=== PATIENT | female | born 1975 | race Caucasian/White ===

== ENCOUNTER → 2020-10-12 | Outpatient (CLI) | payer MEDICARE, OTHER ==
[~2020-10-12] MED LIST: ANTIVERT 25MG T25 MG PO; ASPIRIN CHEWABL81 MG PO; BREO ELLIPTA 11 EACH INH; BUSPAR 10MG10 MG PO; CARDIZEM CD120 MG PO; CYMBALTA 30 MG30 MG PO; DEXILANT60 MG PO; EPIPEN 2-P0.3 MG/0.3 INJ; FEOSOL325 MG PO; FIORICET TAB1 EA PO; FLONASE 0.05% N16 GM; GLUCOPHAGE500 MG PO; IPRATROPIU0.2 MG/1 M INH; K-DUR TAB 10 M10 MEQ PO; LEVOCETIRIZINE D5 MG PO; LIPITOR20 MG PO; LYRICA150 MG PO; MICROZIDE12.5 MG PO; PATADAY2.5 ML OU; PRINIVIL20 MG PO; ROBAXIN-750750 MG PO; SAVAYSA60 MG PO; SINGULAIR10 MG PO; SYNTHROID50 MCG PO; TOPAMAX25 MG PO; TYLENOL W/CODEIN1 E1 PO; VENTOLIN HFA 66.7 GM INH; VITAMIN D250000 UNIT PO; VITAMIN D31000 UNIT PO; Voltaren Gel 1 % TOP
== END ==
LOC: US 09:42
DX: E04.1 Nontoxic single thyroid nodule (principal); Z90.09 Acquired absence of other part of head and neck
CPT/HCPCS: 76536

== ENCOUNTER 2021-09-08 14:25 | Emergency (ER) | payer MEDICARE, OTHER ==
[2021-09-08 19:01] LABS: HEMOGLOBIN 11.4 gm/dl (12.3-15.3); RED BLOOD COUNT 3.86 M/UL (4.00-5.10); WHITE BLOOD COUNT 10.5 K/UL (4.5-11.0)
[2021-09-08] MEDS ORDERED: PHENERGAN 25 MG25 M1 PO (21:55)
== END 2021-09-08 22:10 | disposition home or self-care (01) ==
LOC: ER1 14:25
PROVIDERS: Student in an Organized Health Care Education/Training Program
DX: R11.2 Nausea with vomiting, unspecified (principal); N99.89 Other postprocedural complications and disorders of genitourinary system; I48.91 Unspecified atrial fibrillation; E11.9 Type 2 diabetes mellitus without complications; J45.909 Unspecified asthma, uncomplicated; Z88.8 Allergy status to other drugs, medicaments and biological substances; Z90.710 Acquired absence of both cervix and uterus
CPT/HCPCS: 85025; 96374; 99284; J2405

== ENCOUNTER → 2021-12-18 | Outpatient (CLI) | payer MEDICARE, OTHER ==
[~2021-12-18] MED LIST changes: +PHENERGAN 25 MG25 M1 PO
== END ==
LOC: KOH-I 14:30
DX: E04.1 Nontoxic single thyroid nodule (principal)
CPT/HCPCS: 76536